=== PATIENT | male | born 1965 | race Caucasian/White ===

== ENCOUNTER 2017-06-08 01:54 | Inpatient (IN) | payer MEDICAID ==
[~2017-06-08] VITALS: Ht 185.4 cm; Wt 78.9 kg
[2017-06-08] MEDS ORDERED: VANCOMYCIN PER PHARMACY MC ONE (03:00)
[2017-06-08] MEDS ORDERED: SODIUM CHLORIDE 0.9% 1,000ML IVBOLUS ONE (03:00)
[2017-06-08] MEDS ORDERED: PIPERACILLIN/TAZO/PMX 3.375GM 50 ML IV ONE (03:00)
[2017-06-08] MEDS ORDERED: PIPERACILLIN/TAZO/PMX 3.375GM 50 ML ONE (03:00)
[2017-06-08] MEDS ORDERED: MORPHINE SULFATE 4 MG/ML, 1ML ONE (03:00)
[2017-06-08] MEDS ORDERED: DIPH,PERTUSS(ACELL),TET VAC/PF 0.5 ML IM-VACC ONE ×2 (03:00→03:01)
[2017-06-08] MEDS ORDERED: MORPHINE SULFATE 4 MG/ML, 1ML IV PRN (03:00)
[2017-06-08 03:26] LABS: MEAN CORPUSCULAR HGB CONC 34.3 g/dL (33.2-36.2); MEAN CORPUSCULAR VOLUME 87.5 fL (81-97); MEAN PLATELET VOLUME 8.4 fL (7.4-10.4); PLATELET COUNT 253 x10^3/uL (130-400); RED BLOOD COUNT 3.85 x10^6/uL (4.38-5.82); RED CELL DISTRIBUTION WIDTH 13.6 % (9.4-14.8)
[2017-06-08] MEDS ORDERED: VANCOMYCIN 1,400 MG in SODIUM CHLORIDE 0.9% 250 ML IV ONE (03:30)
[2017-06-08] MEDS ORDERED: PLEASE ENTER ALLERGIES MC SCH (03:30)
[2017-06-08 03:35] LABS: ALBUMIN 2.5 g/dL (3.4-5.0); ANION GAP 8 mmol/L (5-15); CALCIUM 8.7 mg/dL (8.5-10.1); CHLORIDE 99 mmol/L (98-107); CREATININE 0.89 mg/dL (0.7-1.3)
[2017-06-08 03:42] LABS: MD YES
[2017-06-08 03:49] LABS: BAND#(MANUAL) 1.71 x10^3/uL; BANDS%(MANUAL) 6 % (0-7); LYMPH#(MANUAL) 0.86 x10^3/uL (1-3.4); LYMPHS% (MANUAL) 3 % (22-44); MONOS% (MANUAL) 7 % (2-9); REACTIVE LYMPHS # (MANUAL) 0.86 x10^3/uL (0-0); REACTIVE LYMPHS % (MANUAL) 3 % (0-0); SEG#(MANUAL) 23.09 x10^3/uL (1.8-6.8); SEGS% (MANUAL) 81 % (42-75)
[2017-06-08 03:50] LABS: PMNS WITH VACUOLES 1+; POLYCHROMASIA 1+; TOXIC GRAN 1+
[2017-06-08 03:51] LABS: <PLATELET ESTIMATE> ADEQUATE; LARGE PLATELETS 1+
[2017-06-08] MEDS ORDERED: SODIUM CHLORIDE 0.9% 1,000 ML IV ONE (04:16)
[2017-06-08] MEDS ORDERED: MORPHINE SULFATE 4 MG/ML, 1ML IVPush PRN (04:30)
[2017-06-08] MEDS ORDERED: ONDANSETRON 2MG/ML, 2ML IVPush PRN ×2 (04:30→06:00)
[2017-06-08 05:47] VITALS: BP 135/76
[2017-06-08] MEDS ORDERED: hydrALAzine 20 MG/ML, 1ML IVPush PRN (06:00)
[2017-06-08] MEDS: ENOXAPARIN 40 MG/0.4 ML SQ SCH (06:24)
[2017-06-08] MEDS: NICOTINE 21 MG/24 HR PATCH.TD24 TD SCH (06:24)
[2017-06-08] MEDS: SODIUM CHLORIDE 0.9% 1,000 ML IV SCH ×2 (06:24→16:28)
[2017-06-08] MEDS: CEFTAROLINE 600 MG in SODIUM CHLORIDE 0.9% 100 ML IV SCH ×2 (06:38→17:10)
[2017-06-08 07:18] VITALS: BP 151/76
[2017-06-08] MEDS: POLYETHYLENE GLYCOL 17 GM PACKET PO SCH (08:10)
[2017-06-08 08:22] VITALS: BP 135/70
[2017-06-08] MEDS ORDERED: OMNIPAQUE 350 MG/ML, 100ML BOTTLE ONE (10:05)
[2017-06-08 10:28] LABS: MICROSCOPIC INDICATED
[2017-06-08] MEDS: PRAMIPEXOLE 0.125MG TABLET PO SCH ×3 (10:36→20:35)
[2017-06-08] MEDS: ACETAMINOPHEN 500 MG TABLET PO PRN (10:36)
[2017-06-08 11:23] LABS: CULTURE INDICATED? NO
[2017-06-08 14:00] VITALS: BP 130/76
[2017-06-08 20:03] VITALS: BP 140/71
[2017-06-08] MEDS: OXYcodone IR 5MG TABLET PO PRN (22:57)
[2017-06-08] MEDS ORDERED: KETOROLAC 30 MG/1 ML IM PRN (23:00)
[2017-06-08] MEDS: KETOROLAC 30 MG/1 ML IV PRN (23:02)
[2017-06-09] MEDS: SODIUM CHLORIDE 0.9% 1,000 ML IV SCH ×4 (00:28→23:50)
[2017-06-09 00:41] VITALS: BP 127/64
[2017-06-09 05:47] LABS: MEAN CORPUSCULAR HEMOGLOBIN 29.5 pg (27.5-34.5); MEAN CORPUSCULAR HGB CONC 33.5 g/dL (33.2-36.2); MEAN PLATELET VOLUME 8.7 fL (7.4-10.4); PLATELET COUNT 241 x10^3/uL (130-400); RED BLOOD COUNT 3.72 x10^6/uL (4.38-5.82); RED CELL DISTRIBUTION WIDTH 13.4 % (9.4-14.8)
[2017-06-09 05:57] LABS: CHLORIDE 104 mmol/L (98-107)
[2017-06-09 06:15] LABS: ALANINE AMINOTRANSFERASE 23 U/L (12-78); ALBUMIN 1.8 g/dL (3.4-5.0); ALKALINE PHOSPHATASE 175 U/L (45-117); ANION GAP 8 mmol/L (5-15); BILIRUBIN,TOTAL 0.7 mg/dL (0.2-1.0); CALCIUM 7.8 mg/dL (8.5-10.1); CREATININE 1.03 mg/dL (0.7-1.3); MD YES; TOTAL PROTEIN 5.6 g/dL (6.4-8.2)
[2017-06-09 06:16] LABS: BAND#(MANUAL) 0.39 x10^3/uL; BANDS%(MANUAL) 2 % (0-7); LYMPH#(MANUAL) 0.58 x10^3/uL (1-3.4); LYMPHS% (MANUAL) 3 % (22-44); MONOS#(MANUAL) 2.33 x10^3/uL (0.3-2.7); MONOS% (MANUAL) 12 % (2-9); SEGS% (MANUAL) 83 % (42-75)
[2017-06-09 06:17] LABS: <PLATELET ESTIMATE> ADEQUATE; LARGE PLATELETS 1+; POLYCHROMASIA 1+
[2017-06-09 06:20] LABS: TOXIC GRAN 1+
[2017-06-09] MEDS: CEFTAROLINE 600 MG in SODIUM CHLORIDE 0.9% 100 ML IV SCH ×2 (06:21→17:46)
[2017-06-09] MEDS: ENOXAPARIN 40 MG/0.4 ML SQ SCH (06:21)
[2017-06-09] MEDS: NICOTINE 21 MG/24 HR PATCH.TD24 TD SCH (06:24)
[2017-06-09] MEDS: OXYcodone IR 5MG TABLET PO PRN (06:26)
[2017-06-09 06:45] VITALS: BP 121/67
[2017-06-09] MEDS: POLYETHYLENE GLYCOL 17 GM PACKET PO SCH (09:00)
[2017-06-09] MEDS: PRAMIPEXOLE 0.125MG TABLET PO SCH ×3 (09:00→21:23)
[2017-06-09] MEDS ORDERED: FENTANYL PF 250 MCG/5ML ONE (12:21)
[2017-06-09] MEDS ORDERED: MIDAZOLAM 1 MG/ML, 2ML ONE (12:21)
[2017-06-09] MEDS ORDERED: PROPOFOL 10 MG/ML, 20ML ONE (12:22)
[2017-06-09] MEDS ORDERED: LIDOCAINE-MPF 2% ,5ML ONE (12:22)
[2017-06-09] MEDS ORDERED: FENTANYL PF 100 MCG/2ML ONE (13:28)
[2017-06-09] MEDS ORDERED: DEXAMETHASONE 4 MG/ML, 1ML ONE ×2 (13:29)
[2017-06-09] MEDS ORDERED: KETOROLAC 30 MG/1 ML ONE ×2 (13:30→14:30)
[2017-06-09] MEDS ORDERED: ONDANSETRON 2MG/ML, 2ML IVPush PRN (13:30)
[2017-06-09] MEDS ORDERED: LABETALOL 5MG/ML, 20ML IV PRN (13:30)
[2017-06-09] MEDS ORDERED: ONDANSETRON 2MG/ML, 2ML ONE (13:30)
[2017-06-09] MEDS ORDERED: ACETAMINOPHEN 325 MG TABLET PO PRN (13:30)
[2017-06-09] MEDS ORDERED: hydrALAzine 20 MG/ML, 1ML IV PRN (13:30)
[2017-06-09] MEDS ORDERED: LORazepam 2 MG/ML, 1ML IVPush PRN (13:30)
[2017-06-09] MEDS ORDERED: PROMETHAZINE 12.5 MG SUPP PR PRN (13:30)
[2017-06-09] MEDS ORDERED: MEPERIDINE/PF 25MG/0.5ML IVPush PRN (13:30)
[2017-06-09] MEDS ORDERED: FENTANYL PF 100 MCG/2ML IV PRN (13:30)
[2017-06-09] MEDS ORDERED: morphine SULFATE 10 MG/ML, 1ML IV PRN (13:30)
[2017-06-09] MEDS ORDERED: OXYcodone 5 MG/5 ML ORAL.SOL UDC ONE (14:05)
[2017-06-09] MEDS ORDERED: ACETAMINOPHEN 650 MG/20.3 ML UDC ONE (14:05)
[2017-06-09] MEDS: OXYcodone 5 MG/5 ML ORAL.SOL UDC PO PRN (14:12)
[2017-06-09 15:32] VITALS: BP 143/83
[2017-06-09 18:43] VITALS: BP 126/67
[2017-06-09 23:52] VITALS: BP 120/60
[2017-06-10] MEDS: NICOTINE 21 MG/24 HR PATCH.TD24 TD SCH (06:13)
[2017-06-10] MEDS: CEFTAROLINE 600 MG in SODIUM CHLORIDE 0.9% 100 ML IV SCH (06:13)
[2017-06-10] MEDS: ENOXAPARIN 40 MG/0.4 ML SQ SCH (06:13)
[2017-06-10 06:55] VITALS: BP 144/70
[2017-06-10] MEDS: POLYETHYLENE GLYCOL 17 GM PACKET PO SCH (08:51)
[2017-06-10] MEDS: PRAMIPEXOLE 0.125MG TABLET PO SCH ×3 (08:51→21:24)
[2017-06-10] MEDS: SODIUM CHLORIDE 0.9% 1,000 ML IV SCH ×3 (08:51→23:24)
[2017-06-10 13:06] VITALS: BP 153/77
[2017-06-10] MEDS: CEFAZOLIN PMX 2GM/50ML 50 ML IVPB SCH ×2 (16:26→21:50)
[2017-06-10] MEDS: CLINDAMYCIN PMX 900MG/50ML 50 ML IV SCH ×2 (17:03→23:24)
[2017-06-10 20:15] VITALS: BP 131/63
[2017-06-11] MEDS: OXYcodone 5 MG/5 ML ORAL.SOL UDC PO PRN (00:02)
[2017-06-11 01:20] VITALS: BP 119/59
[2017-06-11 05:47] LABS: HCT (SEDRATE) 30.8 % (39.2-51.8)
[2017-06-11 06:50] VITALS: BP 144/81
[2017-06-11] MEDS: ENOXAPARIN 40 MG/0.4 ML SQ SCH (08:55)
[2017-06-11] MEDS: CLINDAMYCIN PMX 900MG/50ML 50 ML IV SCH ×2 (08:55→16:32)
[2017-06-11] MEDS: NICOTINE 21 MG/24 HR PATCH.TD24 TD SCH (08:56)
[2017-06-11] MEDS: PRAMIPEXOLE 0.125MG TABLET PO SCH ×3 (08:56→21:17)
[2017-06-11] MEDS: POLYETHYLENE GLYCOL 17 GM PACKET PO SCH (08:56)
[2017-06-11] MEDS: CEFAZOLIN PMX 2GM/50ML 50 ML IVPB SCH ×2 (10:35→18:14)
[2017-06-11 12:30] VITALS: BP 148/77
[2017-06-11] MEDS: KETOROLAC 30 MG/1 ML IV PRN ×2 (15:15→21:17)
[2017-06-11 19:19] VITALS: BP 148/75
[2017-06-12] MEDS: CLINDAMYCIN PMX 900MG/50ML 50 ML IV SCH ×2 (00:25→10:06)
[2017-06-12] MEDS: SODIUM CHLORIDE 0.9% 1,000 ML IV SCH ×3 (00:38→19:48)
[2017-06-12 01:22] VITALS: BP 136/68
[2017-06-12] MEDS: CEFAZOLIN PMX 2GM/50ML 50 ML IVPB SCH ×3 (03:08→19:47)
[2017-06-12] MEDS: KETOROLAC 30 MG/1 ML IV PRN ×3 (05:50→22:25)
[2017-06-12 07:57] VITALS: BP 132/68
[2017-06-12] MEDS: morphine SULFATE 10 MG/ML, 1ML IVPush PRN ×3 (09:34→10:06)
[2017-06-12] MEDS: ENOXAPARIN 40 MG/0.4 ML SQ SCH (10:06)
[2017-06-12] MEDS: NICOTINE 21 MG/24 HR PATCH.TD24 TD SCH (10:07)
[2017-06-12] MEDS: POLYETHYLENE GLYCOL 17 GM PACKET PO SCH (10:07)
[2017-06-12] MEDS: PRAMIPEXOLE 0.125MG TABLET PO SCH ×3 (10:07→19:47)
[2017-06-12 12:39] VITALS: BP 154/84
[2017-06-12 19:08] VITALS: BP 144/78
[2017-06-12] MEDS: OXYcodone IR 5MG TABLET PO PRN (19:47)
[2017-06-13 02:00] VITALS: BP 160/81
[2017-06-13] MEDS: SODIUM CHLORIDE 0.9% 1,000 ML IV SCH ×3 (03:27→19:53)
[2017-06-13] MEDS: CEFAZOLIN PMX 2GM/50ML 50 ML IVPB SCH ×3 (03:27→19:52)
[2017-06-13] MEDS: OXYcodone IR 5MG TABLET PO PRN ×3 (04:31→18:39)
[2017-06-13 06:06] LABS: ANION GAP 4 mmol/L (5-15); CALCIUM 8.6 mg/dL (8.5-10.1); CHLORIDE 106 mmol/L (98-107); CREATININE 0.87 mg/dL (0.7-1.3)
[2017-06-13 06:32] LABS: MEAN CORPUSCULAR HEMOGLOBIN 29.1 pg (27.5-34.5); MEAN CORPUSCULAR HGB CONC 33.3 g/dL (33.2-36.2); MEAN CORPUSCULAR VOLUME 87.6 fL (81-97); RED BLOOD COUNT 4.02 x10^6/uL (4.38-5.82)
[2017-06-13 06:59] LABS: MD YES; MEAN PLATELET VOLUME 8.2 fL (7.4-10.4); PLATELET COUNT 458 x10^3/uL (130-400)
[2017-06-13 07:01] LABS: <PLATELET ESTIMATE> INCREASED; <PLT MORPHOLOGY> NORMAL PLT MORPH; BAND#(MANUAL) 0.28 x10^3/uL; BANDS%(MANUAL) 2 % (0-7); EOS#(MANUAL) 0.28 x10^3/uL (0.0-0.4); EOS% (MANUAL) 2 % (1-7); LYMPHS% (MANUAL) 15 % (22-44); METAMYELOCYTES# (MANUAL) 0.14 x10^3/uL (0-0); METAMYELOCYTES% (MANUAL) 1 % (0-1); MONOS#(MANUAL) 0.28 x10^3/uL (0.3-2.7); MONOS% (MANUAL) 2 % (2-9); MYELOCYTES# (MANUAL) 0.14 x10^3/uL (0-0); MYELOCYTES% (MANUAL) 1 % (0-0); POLYCHROMASIA 1+; REACTIVE LYMPHS # (MANUAL) 0.14 x10^3/uL (0-0); REACTIVE LYMPHS % (MANUAL) 1 % (0-0); SEG#(MANUAL) 10.64 x10^3/uL (1.8-6.8); SEGS% (MANUAL) 76 % (42-75)
[2017-06-13 07:02] LABS: TOXIC GRAN 1+
[2017-06-13 07:10] VITALS: BP 143/64
[2017-06-13] MEDS: morphine SULFATE 10 MG/ML, 1ML IVPush PRN (07:27)
[2017-06-13] MEDS: POLYETHYLENE GLYCOL 17 GM PACKET PO SCH (09:11)
[2017-06-13] MEDS: ENOXAPARIN 40 MG/0.4 ML SQ SCH (09:11)
[2017-06-13] MEDS: NICOTINE 21 MG/24 HR PATCH.TD24 TD SCH (09:11)
[2017-06-13] MEDS: PRAMIPEXOLE 0.125MG TABLET PO SCH ×3 (09:12→19:52)
[2017-06-13] MEDS: KETOROLAC 30 MG/1 ML IV PRN ×2 (12:39→19:52)
[2017-06-13 14:40] VITALS: BP 157/76
[2017-06-13 20:03] VITALS: BP 153/85
[2017-06-14 03:30] VITALS: BP 160/80
[2017-06-14] MEDS: OXYcodone IR 5MG TABLET PO PRN ×3 (03:32→18:38)
[2017-06-14] MEDS: SODIUM CHLORIDE 0.9% 1,000 ML IV SCH ×3 (03:32→19:45)
[2017-06-14] MEDS: CEFAZOLIN PMX 2GM/50ML 50 ML IVPB SCH ×3 (03:32→19:45)
[2017-06-14 05:40] LABS: MEAN CORPUSCULAR HEMOGLOBIN 29.7 pg (27.5-34.5); MEAN CORPUSCULAR HGB CONC 33.7 g/dL (33.2-36.2); MEAN PLATELET VOLUME 7.8 fL (7.4-10.4); PLATELET COUNT 496 x10^3/uL (130-400); RED BLOOD COUNT 3.96 x10^6/uL (4.38-5.82); RED CELL DISTRIBUTION WIDTH 13.7 % (9.4-14.8)
[2017-06-14 05:50] LABS: CHLORIDE 107 mmol/L (98-107)
[2017-06-14 05:57] LABS: ANION GAP 4 mmol/L (5-15); CALCIUM 8.4 mg/dL (8.5-10.1); CREATININE 0.78 mg/dL (0.7-1.3)
[2017-06-14 06:17] LABS: MD YES
[2017-06-14 06:20] LABS: EOS#(MANUAL) 0.56 x10^3/uL (0.0-0.4); EOS% (MANUAL) 4 % (1-7); LYMPH#(MANUAL) 0.99 x10^3/uL (1-3.4); LYMPHS% (MANUAL) 7 % (22-44); METAMYELOCYTES# (MANUAL) 0.85 x10^3/uL (0-0); METAMYELOCYTES% (MANUAL) 6 % (0-1); MONOS#(MANUAL) 0.56 x10^3/uL (0.3-2.7); MONOS% (MANUAL) 4 % (2-9); MYELOCYTES# (MANUAL) 0.71 x10^3/uL (0-0); MYELOCYTES% (MANUAL) 5 % (0-0); SEG#(MANUAL) 10.43 x10^3/uL (1.8-6.8); SEGS% (MANUAL) 74 % (42-75)
[2017-06-14 06:22] LABS: <PLATELET ESTIMATE> INCREASED; <PLT MORPHOLOGY> NORMAL PLT MORPH; POLYCHROMASIA 1+; TOXIC GRAN 1+
[2017-06-14 07:07] VITALS: BP 148/95
[2017-06-14] MEDS: ACETAMINOPHEN 500 MG TABLET PO PRN (08:34)
[2017-06-14] MEDS: NICOTINE 21 MG/24 HR PATCH.TD24 TD SCH (08:34)
[2017-06-14] MEDS: PRAMIPEXOLE 0.125MG TABLET PO SCH ×3 (08:35→19:45)
[2017-06-14] MEDS: POLYETHYLENE GLYCOL 17 GM PACKET PO SCH (08:35)
[2017-06-14] MEDS: morphine SULFATE 10 MG/ML, 1ML IVPush PRN ×2 (10:52→11:45)
[2017-06-14] MEDS: ENOXAPARIN 40 MG/0.4 ML SQ SCH (13:48)
[2017-06-14 13:52] VITALS: BP 144/79
[2017-06-14 19:17] VITALS: BP 165/90
[2017-06-15 00:59] VITALS: BP 165/84
[2017-06-15] MEDS: OXYcodone IR 5MG TABLET PO PRN ×4 (01:07→20:53)
[2017-06-15] MEDS: SODIUM CHLORIDE 0.9% 1,000 ML IV SCH ×3 (03:33→19:56)
[2017-06-15] MEDS: CEFAZOLIN PMX 2GM/50ML 50 ML IVPB SCH ×3 (03:33→19:56)
[2017-06-15 05:04] LABS: BASOPHILS # (AUTO) 0.04 x10^3/uL (0-0.1); BASOPHILS % (AUTO) 0 % (0-1); EOSINOPHILS # (AUTO) 0.22 x10^3/uL (0-0.4); EOSINOPHILS % (AUTO) 2 % (1-7); LYMPHOCYTES # (AUTO) 1.18 x10^3/uL (1-3.4); LYMPHOCYTES % (AUTO) 9 % (22-44); MD NO; MEAN CORPUSCULAR HEMOGLOBIN 29.4 pg (27.5-34.5); MEAN CORPUSCULAR HGB CONC 33.8 g/dL (33.2-36.2); MEAN CORPUSCULAR VOLUME 86.9 fL (81-97); MEAN PLATELET VOLUME 7.5 fL (7.4-10.4); MONOCYTES # (AUTO) 0.33 x10^3/uL (0.2-0.8); MONOCYTES % (AUTO) 3 % (2-9); NEUTROPHILS % (AUTO) 86 % (42-75); PLATELET COUNT 497 x10^3/uL (130-400); RED BLOOD COUNT 4.01 x10^6/uL (4.38-5.82); RED CELL DISTRIBUTION WIDTH 13.8 % (9.4-14.8)
[2017-06-15 05:13] LABS: ANION GAP 6 mmol/L (5-15); CALCIUM 8.8 mg/dL (8.5-10.1); CHLORIDE 103 mmol/L (98-107); CREATININE 0.92 mg/dL (0.7-1.3)
[2017-06-15 06:43] VITALS: BP 127/63
[2017-06-15] MEDS: POLYETHYLENE GLYCOL 17 GM PACKET PO SCH (08:26)
[2017-06-15] MEDS: NICOTINE 21 MG/24 HR PATCH.TD24 TD SCH (08:27)
[2017-06-15] MEDS: PRAMIPEXOLE 0.125MG TABLET PO SCH ×3 (08:28→19:56)
[2017-06-15] MEDS: ENOXAPARIN 40 MG/0.4 ML SQ SCH (08:28)
[2017-06-15 12:30] VITALS: BP 124/79
[2017-06-15 19:20] VITALS: BP 145/79
[2017-06-16 02:59] VITALS: BP 120/64
[2017-06-16] MEDS: SODIUM CHLORIDE 0.9% 1,000 ML IV SCH ×3 (03:44→22:30)
[2017-06-16] MEDS: CEFAZOLIN PMX 2GM/50ML 50 ML IVPB SCH ×3 (03:44→19:46)
[2017-06-16 05:41] LABS: BASOPHILS # (AUTO) 0.04 x10^3/uL (0-0.1); BASOPHILS % (AUTO) 0 % (0-1); EOSINOPHILS # (AUTO) 0.15 x10^3/uL (0-0.4); EOSINOPHILS % (AUTO) 2 % (1-7); LYMPHOCYTES # (AUTO) 1.19 x10^3/uL (1-3.4); LYMPHOCYTES % (AUTO) 12 % (22-44); MD NO; MEAN CORPUSCULAR VOLUME 88.2 fL (81-97); MEAN PLATELET VOLUME 7.9 fL (7.4-10.4); MONOCYTES % (AUTO) 4 % (2-9); NEUTROPHILS # (AUTO) 8.38 x10^3/uL (1.8-6.8); NEUTROPHILS % (AUTO) 82 % (42-75); PLATELET COUNT 514 x10^3/uL (130-400); RED BLOOD COUNT 3.99 x10^6/uL (4.38-5.82); RED CELL DISTRIBUTION WIDTH 14.2 % (9.4-14.8)
[2017-06-16 05:48] LABS: ANION GAP 4 mmol/L (5-15); CHLORIDE 105 mmol/L (98-107); CREATININE 0.96 mg/dL (0.7-1.3)
[2017-06-16 07:09] VITALS: BP 117/67
[2017-06-16] MEDS: NICOTINE 21 MG/24 HR PATCH.TD24 TD SCH (08:00)
[2017-06-16] MEDS: PRAMIPEXOLE 0.125MG TABLET PO SCH ×3 (08:57→19:46)
[2017-06-16] MEDS: ENOXAPARIN 40 MG/0.4 ML SQ SCH (08:57)
[2017-06-16] MEDS: OXYcodone IR 5MG TABLET PO PRN ×3 (08:57→22:30)
[2017-06-16] MEDS: POLYETHYLENE GLYCOL 17 GM PACKET PO SCH (08:59)
[2017-06-16 13:00] VITALS: BP 129/75
[2017-06-16 19:52] VITALS: BP 151/67
[2017-06-17 03:32] VITALS: BP 132/74
[2017-06-17] MEDS: OXYcodone IR 5MG TABLET PO PRN ×4 (03:44→23:03)
[2017-06-17] MEDS: CEFAZOLIN PMX 2GM/50ML 50 ML IVPB SCH ×3 (03:46→20:03)
[2017-06-17 05:38] LABS: CHLORIDE 103 mmol/L (98-107)
[2017-06-17 05:49] LABS: ALANINE AMINOTRANSFERASE 17 U/L (12-78); ALBUMIN 2.3 g/dL (3.4-5.0); ALKALINE PHOSPHATASE 88 U/L (45-117); ANION GAP 8 mmol/L (5-15); BILIRUBIN,TOTAL 0.3 mg/dL (0.2-1.0); C-REACTIVE PROTEIN, QUANT 0.72 mg/dL (0.02-0.49); CALCIUM 8.7 mg/dL (8.5-10.1); CREATININE 0.91 mg/dL (0.7-1.3); TOTAL PROTEIN 6.8 g/dL (6.4-8.2)
[2017-06-17 05:57] LABS: BASOPHILS # (AUTO) 0.04 x10^3/uL (0-0.1); BASOPHILS % (AUTO) 1 % (0-1); EOSINOPHILS # (AUTO) 0.12 x10^3/uL (0-0.4); EOSINOPHILS % (AUTO) 2 % (1-7); LYMPHOCYTES # (AUTO) 1.22 x10^3/uL (1-3.4); LYMPHOCYTES % (AUTO) 17 % (22-44); MD NO; MEAN CORPUSCULAR HEMOGLOBIN 29.2 pg (27.5-34.5); MEAN CORPUSCULAR HGB CONC 33.2 g/dL (33.2-36.2); MEAN CORPUSCULAR VOLUME 87.8 fL (81-97); MEAN PLATELET VOLUME 7.9 fL (7.4-10.4); MONOCYTES % (AUTO) 6 % (2-9); NEUTROPHILS # (AUTO) 5.45 x10^3/uL (1.8-6.8); NEUTROPHILS % (AUTO) 75 % (42-75); PLATELET COUNT 503 x10^3/uL (130-400); RED BLOOD COUNT 3.95 x10^6/uL (4.38-5.82); RED CELL DISTRIBUTION WIDTH 14.4 % (9.4-14.8)
[2017-06-17 06:25] LABS: HCT (SEDRATE) 35.2 % (39.2-51.8)
[2017-06-17 07:05] VITALS: BP 134/83
[2017-06-17] MEDS: NICOTINE 21 MG/24 HR PATCH.TD24 TD SCH (08:00)
[2017-06-17] MEDS: PRAMIPEXOLE 0.125MG TABLET PO SCH ×3 (09:03→20:03)
[2017-06-17] MEDS: POLYETHYLENE GLYCOL 17 GM PACKET PO SCH (09:03)
[2017-06-17] MEDS: SODIUM CHLORIDE 0.9% 1,000 ML IV SCH ×2 (09:03→17:03)
[2017-06-17] MEDS: morphine SULFATE 10 MG/ML, 1ML IVPush PRN ×2 (09:35→10:43)
[2017-06-17] MEDS: ENOXAPARIN 40 MG/0.4 ML SQ SCH (10:44)
[2017-06-17 14:19] VITALS: BP 118/63
[2017-06-17 19:46] VITALS: BP 132/63
[2017-06-18] MEDS: SODIUM CHLORIDE 0.9% 1,000 ML IV SCH ×3 (00:26→11:46)
[2017-06-18 01:08] VITALS: BP 142/59
[2017-06-18] MEDS: CEFAZOLIN PMX 2GM/50ML 50 ML IVPB SCH ×3 (03:30→20:35)
[2017-06-18] MEDS: OXYcodone IR 5MG TABLET PO PRN ×3 (06:02→17:17)
[2017-06-18] MEDS: NICOTINE 21 MG/24 HR PATCH.TD24 TD SCH (08:00)
[2017-06-18] MEDS: POLYETHYLENE GLYCOL 17 GM PACKET PO SCH (08:09)
[2017-06-18] MEDS: PRAMIPEXOLE 0.125MG TABLET PO SCH ×3 (08:09→20:35)
[2017-06-18] MEDS: ENOXAPARIN 40 MG/0.4 ML SQ SCH (08:12)
[2017-06-18 08:19] VITALS: BP 128/67
[2017-06-18 14:15] VITALS: BP 132/62
[2017-06-18 19:15] VITALS: BP 138/66
[2017-06-18] MEDS: ACETAMINOPHEN 500 MG TABLET PO PRN (20:35)
[2017-06-19] MEDS: OXYcodone IR 5MG TABLET PO PRN ×4 (00:07→21:10)
[2017-06-19 01:20] VITALS: BP 127/69
[2017-06-19] MEDS: CEFAZOLIN PMX 2GM/50ML 50 ML IVPB SCH ×3 (05:00→19:59)
[2017-06-19 06:47] VITALS: BP 129/65
[2017-06-19] MEDS: ENOXAPARIN 40 MG/0.4 ML SQ SCH ×2 (07:34→08:00)
[2017-06-19] MEDS: NICOTINE 21 MG/24 HR PATCH.TD24 TD SCH (08:00)
[2017-06-19] MEDS: PRAMIPEXOLE 0.125MG TABLET PO SCH ×3 (08:41→19:58)
[2017-06-19] MEDS: POLYETHYLENE GLYCOL 17 GM PACKET PO SCH (08:48)
[2017-06-19] MEDS: morphine SULFATE 10 MG/ML, 1ML IVPush PRN (11:11)
[2017-06-19 12:21] VITALS: BP 123/56
[2017-06-19 20:01] VITALS: BP 144/71
[2017-06-20] MEDS: ACETAMINOPHEN 500 MG TABLET PO PRN ×2 (00:22→20:32)
[2017-06-20] MEDS: CEFAZOLIN PMX 2GM/50ML 50 ML IVPB SCH ×3 (03:43→20:32)
[2017-06-20] MEDS: OXYcodone IR 5MG TABLET PO PRN ×3 (03:43→18:38)
[2017-06-20 04:05] VITALS: BP 119/61
[2017-06-20 07:18] VITALS: BP 112/60
[2017-06-20] MEDS: ENOXAPARIN 40 MG/0.4 ML SQ SCH (08:00)
[2017-06-20] MEDS: NICOTINE 21 MG/24 HR PATCH.TD24 TD SCH (08:00)
[2017-06-20] MEDS: POLYETHYLENE GLYCOL 17 GM PACKET PO SCH (08:59)
[2017-06-20] MEDS: PRAMIPEXOLE 0.125MG TABLET PO SCH ×3 (09:00→20:32)
[2017-06-20 13:46] VITALS: BP 130/60
[2017-06-20 18:35] VITALS: BP 151/71
[2017-06-21] MEDS: CEFAZOLIN PMX 2GM/50ML 50 ML IVPB SCH ×2 (03:46→12:17)
[2017-06-21 04:10] VITALS: BP 120/53
[2017-06-21 05:37] LABS: BASOPHILS # (AUTO) 0.08 x10^3/uL (0-0.1); BASOPHILS % (AUTO) 1 % (0-1); EOSINOPHILS # (AUTO) 0.12 x10^3/uL (0-0.4); EOSINOPHILS % (AUTO) 2 % (1-7); LYMPHOCYTES # (AUTO) 1.28 x10^3/uL (1-3.4); LYMPHOCYTES % (AUTO) 20 % (22-44); MD NO; MEAN CORPUSCULAR HEMOGLOBIN 29.4 pg (27.5-34.5); MEAN CORPUSCULAR HGB CONC 33.4 g/dL (33.2-36.2); MEAN CORPUSCULAR VOLUME 87.8 fL (81-97); MEAN PLATELET VOLUME 7.8 fL (7.4-10.4); MONOCYTES # (AUTO) 0.46 x10^3/uL (0.2-0.8); MONOCYTES % (AUTO) 7 % (2-9); NEUTROPHILS # (AUTO) 4.51 x10^3/uL (1.8-6.8); NEUTROPHILS % (AUTO) 70 % (42-75); PLATELET COUNT 481 x10^3/uL (130-400); RED BLOOD COUNT 4.05 x10^6/uL (4.38-5.82)
[2017-06-21 05:48] LABS: ANION GAP 7 mmol/L (5-15); CALCIUM 8.9 mg/dL (8.5-10.1); CHLORIDE 102 mmol/L (98-107)
[2017-06-21 05:49] LABS: CREATININE 0.94 mg/dL (0.7-1.3)
[2017-06-21 06:45] VITALS: BP 135/65
[2017-06-21] MEDS: ENOXAPARIN 40 MG/0.4 ML SQ SCH (08:00)
[2017-06-21] MEDS: NICOTINE 21 MG/24 HR PATCH.TD24 TD SCH (08:00)
[2017-06-21] MEDS: PRAMIPEXOLE 0.125MG TABLET PO SCH ×3 (08:48→20:22)
[2017-06-21] MEDS: OXYcodone IR 5MG TABLET PO PRN ×2 (08:48→16:55)
[2017-06-21] MEDS: POLYETHYLENE GLYCOL 17 GM PACKET PO SCH (08:48)
[2017-06-21] MEDS: morphine SULFATE 10 MG/ML, 1ML IVPush PRN (10:46)
[2017-06-21 15:22] VITALS: BP 118/61
[2017-06-21 20:12] VITALS: BP 129/61
[2017-06-21] MEDS: ACETAMINOPHEN 500 MG TABLET PO PRN (20:22)
[2017-06-21] MEDS: CEFAZOLIN 2,000 MG in DEXTROSE 5% 50 ML IVPB SCH (20:22)
[2017-06-22 01:45] VITALS: BP 124/63
[2017-06-22] MEDS: ACETAMINOPHEN 500 MG TABLET PO PRN ×3 (02:14→16:19)
[2017-06-22] MEDS: CEFAZOLIN 2,000 MG in DEXTROSE 5% 50 ML IVPB SCH ×3 (03:53→20:35)
[2017-06-22] MEDS: NICOTINE 21 MG/24 HR PATCH.TD24 TD SCH (07:23)
[2017-06-22] MEDS: ENOXAPARIN 40 MG/0.4 ML SQ SCH (07:23)
[2017-06-22 08:10] VITALS: BP 127/60
[2017-06-22] MEDS: POLYETHYLENE GLYCOL 17 GM PACKET PO SCH (09:00)
[2017-06-22] MEDS: PRAMIPEXOLE 0.125MG TABLET PO SCH ×3 (09:48→20:35)
[2017-06-22 14:45] VITALS: BP 136/62
[2017-06-22 20:00] VITALS: BP 126/47
[2017-06-22] MEDS: OXYcodone IR 5MG TABLET PO PRN (20:35)
[2017-06-23] MEDS: ACETAMINOPHEN 500 MG TABLET PO PRN ×4 (01:29→21:20)
[2017-06-23 02:00] VITALS: BP 128/55
[2017-06-23] MEDS: CEFAZOLIN 2,000 MG in DEXTROSE 5% 50 ML IVPB SCH ×3 (04:02→20:28)
[2017-06-23 08:00] VITALS: BP 111/61
[2017-06-23] MEDS: NICOTINE 21 MG/24 HR PATCH.TD24 TD SCH (08:00)
[2017-06-23] MEDS: ENOXAPARIN 40 MG/0.4 ML SQ SCH (08:00)
[2017-06-23] MEDS: POLYETHYLENE GLYCOL 17 GM PACKET PO SCH (09:00)
[2017-06-23] MEDS: PRAMIPEXOLE 0.125MG TABLET PO SCH ×3 (09:12→20:27)
[2017-06-23 14:20] VITALS: BP 128/66
[2017-06-23 19:00] VITALS: BP 137/67
[2017-06-24 02:17] VITALS: BP 136/61
[2017-06-24] MEDS: CEFAZOLIN 2,000 MG in DEXTROSE 5% 50 ML IVPB SCH ×3 (04:47→22:03)
[2017-06-24 05:14] LABS: HCT (SEDRATE) 34.4 % (39.2-51.8)
[2017-06-24 05:25] LABS: CHLORIDE 109 mmol/L (98-107)
[2017-06-24 05:29] LABS: ALANINE AMINOTRANSFERASE 15 U/L (12-78); ALBUMIN 2.9 g/dL (3.4-5.0); ALKALINE PHOSPHATASE 80 U/L (45-117); ANION GAP 6 mmol/L (5-15); BILIRUBIN,TOTAL 0.2 mg/dL (0.2-1.0); C-REACTIVE PROTEIN, QUANT 0.08 mg/dL (0.02-0.49); CALCIUM 8.4 mg/dL (8.5-10.1); CREATININE 0.81 mg/dL (0.7-1.3); TOTAL PROTEIN 7.5 g/dL (6.4-8.2)
[2017-06-24 05:30] LABS: BASOPHILS # (AUTO) 0.05 x10^3/uL (0-0.1); BASOPHILS % (AUTO) 1 % (0-1); EOSINOPHILS % (AUTO) 1 % (1-7); LYMPHOCYTES # (AUTO) 1.18 x10^3/uL (1-3.4); LYMPHOCYTES % (AUTO) 15 % (22-44); MD NO; MEAN CORPUSCULAR HEMOGLOBIN 29.8 pg (27.5-34.5); MEAN CORPUSCULAR VOLUME 87.6 fL (81-97); MEAN PLATELET VOLUME 8.3 fL (7.4-10.4); MONOCYTES # (AUTO) 0.46 x10^3/uL (0.2-0.8); MONOCYTES % (AUTO) 6 % (2-9); NEUTROPHILS # (AUTO) 6.04 x10^3/uL (1.8-6.8); NEUTROPHILS % (AUTO) 77 % (42-75); PLATELET COUNT 418 x10^3/uL (130-400); RED BLOOD COUNT 3.94 x10^6/uL (4.38-5.82); RED CELL DISTRIBUTION WIDTH 13.8 % (9.4-14.8)
[2017-06-24] MEDS: NICOTINE 21 MG/24 HR PATCH.TD24 TD SCH (08:00)
[2017-06-24] MEDS: ENOXAPARIN 40 MG/0.4 ML SQ SCH (08:00)
[2017-06-24 08:34] VITALS: BP 142/79
[2017-06-24] MEDS: POLYETHYLENE GLYCOL 17 GM PACKET PO SCH (09:00)
[2017-06-24] MEDS: PRAMIPEXOLE 0.125MG TABLET PO SCH ×3 (10:19→20:26)
[2017-06-24 14:25] VITALS: BP_SYST 112; BP_SYST 137; BP_DIAS 68; BP_DIAS 72
[2017-06-24 20:11] VITALS: BP 150/65
[2017-06-24] MEDS: ACETAMINOPHEN 500 MG TABLET PO PRN (20:26)
[2017-06-25 02:58] VITALS: BP 135/64
[2017-06-25] MEDS: CEFAZOLIN 2,000 MG in DEXTROSE 5% 50 ML IVPB SCH ×2 (05:11→13:00)
[2017-06-25] MEDS: ENOXAPARIN 40 MG/0.4 ML SQ SCH (07:43)
[2017-06-25] MEDS: NICOTINE 21 MG/24 HR PATCH.TD24 TD SCH (07:45)
[2017-06-25 08:05] VITALS: BP_SYST 146; BP_SYST 161; BP_DIAS 67; BP_DIAS 77
[2017-06-25] MEDS: POLYETHYLENE GLYCOL 17 GM PACKET PO SCH (09:00)
[2017-06-25] MEDS: PRAMIPEXOLE 0.125MG TABLET PO SCH ×3 (10:54→20:19)
[2017-06-25 11:56] VITALS: BP 131/73
[2017-06-25 14:00] VITALS: BP 131/73
[2017-06-25 19:18] VITALS: BP 142/71
[2017-06-25] MEDS ORDERED: FLU VACC QS2017-18 (36MOS+) UP/PF 0.5 ML IM-VACC ONE (22:00)
[2017-06-26] MEDS ORDERED: DIPHENHYDRAMINE 25 MG CAPSULE PO ONE (01:30)
[2017-06-26 01:49] VITALS: BP 132/59
[2017-06-26 05:33] LABS: BASOPHILS # (AUTO) 0.06 x10^3/uL (0-0.1); BASOPHILS % (AUTO) 1 % (0-1); EOSINOPHILS # (AUTO) 0.16 x10^3/uL (0-0.4); EOSINOPHILS % (AUTO) 2 % (1-7); LYMPHOCYTES # (AUTO) 1.31 x10^3/uL (1-3.4); LYMPHOCYTES % (AUTO) 19 % (22-44); MD NO; MEAN CORPUSCULAR HEMOGLOBIN 29.4 pg (27.5-34.5); MEAN CORPUSCULAR HGB CONC 33.4 g/dL (33.2-36.2); MEAN PLATELET VOLUME 8.5 fL (7.4-10.4); MONOCYTES # (AUTO) 0.49 x10^3/uL (0.2-0.8); MONOCYTES % (AUTO) 7 % (2-9); NEUTROPHILS % (AUTO) 71 % (42-75); PLATELET COUNT 340 x10^3/uL (130-400); RED BLOOD COUNT 4.07 x10^6/uL (4.38-5.82); RED CELL DISTRIBUTION WIDTH 14.1 % (9.4-14.8)
[2017-06-26 05:39] LABS: ANION GAP 8 mmol/L (5-15); CALCIUM 8.8 mg/dL (8.5-10.1); CHLORIDE 106 mmol/L (98-107); CREATININE 0.92 mg/dL (0.7-1.3)
[2017-06-26 07:25] VITALS: BP 130/73
[2017-06-26] MEDS: PRAMIPEXOLE 0.125MG TABLET PO SCH ×3 (08:24→21:22)
[2017-06-26] MEDS: NICOTINE 21 MG/24 HR PATCH.TD24 TD SCH (08:25)
[2017-06-26] MEDS: ENOXAPARIN 40 MG/0.4 ML SQ SCH (08:25)
[2017-06-26] MEDS: POLYETHYLENE GLYCOL 17 GM PACKET PO SCH (08:26)
[2017-06-26 13:20] VITALS: BP 130/82
[2017-06-26 19:41] VITALS: BP 142/80
[2017-06-27 02:37] VITALS: BP 134/73
[2017-06-27 07:21] VITALS: BP 130/74
[2017-06-27] MEDS: PRAMIPEXOLE 0.125MG TABLET PO SCH ×3 (07:58→20:11)
[2017-06-27] MEDS: NICOTINE 21 MG/24 HR PATCH.TD24 TD SCH (07:58)
[2017-06-27] MEDS: ENOXAPARIN 40 MG/0.4 ML SQ SCH (07:59)
[2017-06-27] MEDS: POLYETHYLENE GLYCOL 17 GM PACKET PO SCH (07:59)
[2017-06-27 14:23] VITALS: BP 126/72
[2017-06-27 20:37] VITALS: BP 139/80
[2017-06-27] MEDS: ZOLPIDEM 5MG TABLET PO PRN (22:38)
[2017-06-28 05:04] VITALS: BP 126/60
[2017-06-28 07:27] VITALS: BP 120/71
[2017-06-28] MEDS: NICOTINE 21 MG/24 HR PATCH.TD24 TD SCH (07:35)
[2017-06-28] MEDS: PRAMIPEXOLE 0.125MG TABLET PO SCH ×3 (07:35→21:17)
[2017-06-28] MEDS: POLYETHYLENE GLYCOL 17 GM PACKET PO SCH (07:35)
[2017-06-28] MEDS: ENOXAPARIN 40 MG/0.4 ML SQ SCH (07:36)
[2017-06-28 13:30] VITALS: BP 132/61
[2017-06-28 19:50] VITALS: BP 129/81
[2017-06-28] MEDS: ZOLPIDEM 5MG TABLET PO PRN (21:18)
[2017-06-29 05:23] VITALS: BP 128/78
[2017-06-29 07:27] VITALS: BP 135/73
[2017-06-29] MEDS: NICOTINE 21 MG/24 HR PATCH.TD24 TD SCH (08:00)
[2017-06-29] MEDS: ENOXAPARIN 40 MG/0.4 ML SQ SCH (08:00)
[2017-06-29] MEDS: POLYETHYLENE GLYCOL 17 GM PACKET PO SCH (08:02)
[2017-06-29] MEDS: PRAMIPEXOLE 0.125MG TABLET PO SCH ×3 (08:14→20:32)
[2017-06-29 13:31] VITALS: BP 129/74
[2017-06-29] MEDS ORDERED: ONDANSETRON 2MG/ML, 2ML IVPush PRN (16:14)
[2017-06-29] MEDS ORDERED: ONDANSETRON ODT 4 MG PO PRN (16:30)
[2017-06-29 18:52] VITALS: BP 148/76
[2017-06-29] MEDS: ZOLPIDEM 5MG TABLET PO PRN (20:32)
[2017-06-30 05:48] VITALS: BP 114/71
[2017-06-30 07:00] VITALS: BP 117/74
[2017-06-30] MEDS: POLYETHYLENE GLYCOL 17 GM PACKET PO SCH (07:30)
[2017-06-30] MEDS: ENOXAPARIN 40 MG/0.4 ML SQ SCH (07:30)
[2017-06-30] MEDS: NICOTINE 21 MG/24 HR PATCH.TD24 TD SCH (07:30)
[2017-06-30] MEDS: PRAMIPEXOLE 0.125MG TABLET PO SCH ×3 (07:31→20:54)
[2017-06-30 13:00] VITALS: BP 147/74
[2017-06-30 19:12] VITALS: BP 138/77
[2017-06-30] MEDS: ZOLPIDEM 5MG TABLET PO PRN (20:54)
[2017-07-01 04:24] VITALS: BP 129/66
[2017-07-01 06:55] VITALS: BP 110/82
[2017-07-01] MEDS: POLYETHYLENE GLYCOL 17 GM PACKET PO SCH (07:20)
[2017-07-01] MEDS: ENOXAPARIN 40 MG/0.4 ML SQ SCH (07:20)
[2017-07-01] MEDS: NICOTINE 21 MG/24 HR PATCH.TD24 TD SCH (07:20)
[2017-07-01] MEDS: PRAMIPEXOLE 0.125MG TABLET PO SCH (07:21)
[2017-07-01] MEDS ORDERED: ACET325T26 PO (11:16)
[2017-07-01] MEDS ORDERED: HYDR-3343 PO (11:16)
[2017-07-01] MEDS ORDERED: PRAM0.125 PO (11:16)
[2017-07-01] MEDS ORDERED: NICO-487 TD (11:16)
== END 2017-07-01 12:37 | DRG 853 ==
LOC: ED 02:41 → EDIP 04:19 → 3NE 05:30 → DCLOUNGE 07-01 12:22
PROVIDERS: ADMIT Hospitalist; ATTEND Family Medicine
PROC: 0J9H0ZZ Drainage of Left Lower Arm Subcutaneous Tissue and Fascia, Open Approach (ICD-10-PCS; principal; 2017-06-09 12:30)
DX: A41.9 Sepsis, unspecified organism (principal); E43 Unspecified severe protein-calorie malnutrition; M72.6 Necrotizing fasciitis; E87.1 Hypo-osmolality and hyponatremia; F15.20 Other stimulant dependence, uncomplicated; L02.414 Cutaneous abscess of left upper limb; L03.114 Cellulitis of left upper limb; D64.9 Anemia, unspecified; F11.10 Opioid abuse, uncomplicated; F17.210 Nicotine dependence, cigarettes, uncomplicated; G25.81 Restless legs syndrome; I10 Essential (primary) hypertension; Z59.0 Homelessness; Z68.22 Body mass index [BMI] 22.0-22.9, adult
CPT/HCPCS: 36415; 80048; 80053; 81001; 82040; 83605; 83735; 84100; 84145; 84443; 85025; 85651; 86140; 87040; 87070; 87075; 87147; 87205; 90471; 90686; 90715; 96365; 96375; J0690; J0712; J1100; J1650; J1885; J2250; J2405; J2543; J2704; J3010; J3490; Q9967; J2270; J7030

== ENCOUNTER 2017-11-21 23:34 | Inpatient (IN) | payer MEDICAID ==
[~2017-11-21] VITALS: Ht 185.4 cm; Wt 73.0 kg
[~2017-11-21 23:34] MED LIST: ACET325T26 PO; HYDR-3343 PO; NICO-487 TD; PRAM0.125 PO
[2017-11-22] MEDS ORDERED: SODIUM CHLORIDE 0.9% 1,000ML IVBOLUS ONE
[2017-11-22] MEDS ORDERED: VANCOMYCIN PER PHARMACY MC ONE
[2017-11-22] MEDS ORDERED: ONDANSETRON 2MG/ML, 2ML IVPush ONE
[2017-11-22] MEDS ORDERED: PIPERACILLIN/TAZO/PMX 3.375GM 50 ML IVPB ONE
[2017-11-22] MEDS ORDERED: MORPHINE SULFATE 4 MG/ML, 1ML IVPush PRN
[2017-11-22] MEDS ORDERED: PIPERACILLIN/TAZO/PMX 3.375GM 50 ML ONE (00:26)
[2017-11-22] MEDS ORDERED: MORPHINE SULFATE 4 MG/ML, 1ML ONE (00:26)
[2017-11-22] MEDS ORDERED: VANCOMYCIN 1,600 MG in SODIUM CHLORIDE 0.9% 250 ML IV ONE (00:30)
[2017-11-22] MEDS ORDERED: PHARMACOKINETIC CONSULTATION MC ONE (00:30)
[2017-11-22 00:45] LABS: BASOPHILS # (AUTO) 0.04 x10^3/uL (0-0.1); BASOPHILS % (AUTO) 0 % (0-1); EOSINOPHILS # (AUTO) 0.32 x10^3/uL (0-0.4); EOSINOPHILS % (AUTO) 2 % (1-7); LYMPHOCYTES # (AUTO) 1.18 x10^3/uL (1-3.4); LYMPHOCYTES % (AUTO) 8 % (22-44); MD NO; MEAN CORPUSCULAR HEMOGLOBIN 29.3 pg (27.5-34.5); MEAN CORPUSCULAR HGB CONC 34.3 g/dL (33.2-36.2); MEAN CORPUSCULAR VOLUME 85.3 fL (81-97); MEAN PLATELET VOLUME 9.2 fL (7.4-10.4); MONOCYTES # (AUTO) 0.95 x10^3/uL (0.2-0.8); MONOCYTES % (AUTO) 6 % (2-9); NEUTROPHILS # (AUTO) 12.35 x10^3/uL (1.8-6.8); NEUTROPHILS % (AUTO) 83 % (42-75); PLATELET COUNT 270 x10^3/uL (130-400); RED BLOOD COUNT 4.36 x10^6/uL (4.38-5.82); RED CELL DISTRIBUTION WIDTH 13.7 % (9.4-14.8)
[2017-11-22 00:49] LABS: ALBUMIN 3.3 g/dL (3.4-5.0); ANION GAP 6 mmol/L (5-15); CALCIUM 8.5 mg/dL (8.5-10.1); CHLORIDE 106 mmol/L (98-107); CREATININE 1.02 mg/dL (0.7-1.3)
[2017-11-22] MEDS ORDERED: OMNIPAQUE 350 MG/ML, 100ML BOTTLE ONE (01:45)
[2017-11-22] MEDS ORDERED: LIDOCAINE 2%, 10ML INFIL ONE (03:00)
[2017-11-22] MEDS ORDERED: LIDOCAINE-MPF 2%, 2ML ONE ×2 (03:36)
[2017-11-22] MEDS ORDERED: BISACODYL 10 MG SUPP PR PRN (04:00)
[2017-11-22] MEDS ORDERED: POLYETHYLENE GLYCOL 17 GM PACKET PO PRN (04:00)
[2017-11-22] MEDS ORDERED: DOCUSATE 100 MG CAPSULE PO PRN (04:00)
[2017-11-22] MEDS ORDERED: PROMETHAZINE 25 MG/ML, 1ML IM PRN (04:00)
[2017-11-22] MEDS ORDERED: ONDANSETRON ODT 4 MG PO PRN (04:00)
[2017-11-22] MEDS ORDERED: LABETALOL 5MG/ML, 20ML IVPush PRN (04:00)
[2017-11-22] MEDS ORDERED: ONDANSETRON 2MG/ML, 2ML IVPush PRN (04:00)
[2017-11-22] MEDS ORDERED: hydrALAzine 20 MG/ML, 1ML IVPush PRN (04:00)
[2017-11-22] MEDS ORDERED: OXYcodone IR 5MG TABLET PO PRN (04:00)
[2017-11-22] MEDS ORDERED: VANCOMYCIN PER PHARMACY MC PRN (04:00)
[2017-11-22] MEDS ORDERED: ACETAMINOPHEN 325 MG TABLET PO PRN (04:00)
[2017-11-22 04:23] LABS: C-REACTIVE PROTEIN, QUANT 4.3 mg/dL (0.02-0.49); FREE T4 (FREE THYROXINE) 0.92 ng/dL (0.76-1.46); THYROID STIMULATING HORMONE 2.97 mIU/L (0.358-3.740)
[2017-11-22 04:30] LABS: HEMOGLOBIN A1C 5.6 % (4.2-6.3)
[2017-11-22 04:41] VITALS: BP 121/61
[2017-11-22] MEDS: PRAMIPEXOLE 0.125MG TABLET PO SCH ×4 (05:00→22:47)
[2017-11-22] MEDS: HEPARIN 5,000 UNITS/ML, 1ML SQ SCH ×3 (05:00→21:00)
[2017-11-22] MEDS ORDERED: PHARMACOKINETIC MONITORING MC PRN (05:00)
[2017-11-22] MEDS: NICOTINE 7 MG/24 HR PATCH.TD24 TD SCH (05:01)
[2017-11-22] MEDS: AMPICILLIN/SULBACTAM 3 GM in SODIUM CHLORIDE 0.9% 100 ML IV SCH ×3 (05:01→18:04)
[2017-11-22] MEDS: SODIUM CHLORIDE 0.9% 1,000 ML IV SCH ×3 (05:01→22:47)
[2017-11-22 05:16] LABS: HCT (SEDRATE) 37.2 % (39.2-51.8)
[2017-11-22] MEDS: MAGNESIUM OXIDE 400 MG TABLET PO SCH (08:27)
[2017-11-22 08:28] VITALS: BP 131/69
[2017-11-22] MEDS: VANCOMYCIN 1,600 MG in SODIUM CHLORIDE 0.9% 250 ML IV SCH (13:37)
[2017-11-22 14:48] VITALS: BP 145/78
[2017-11-22 21:00] VITALS: BP 160/92
[2017-11-23] MEDS: AMPICILLIN/SULBACTAM 3 GM in SODIUM CHLORIDE 0.9% 100 ML IV SCH ×5 (00:17→22:28)
[2017-11-23] MEDS: morphine SULFATE 10 MG/ML, 1ML IVPush PRN ×3 (00:17→22:40)
[2017-11-23] MEDS: VANCOMYCIN 1,600 MG in SODIUM CHLORIDE 0.9% 250 ML IV SCH ×3 (01:10→12:52)
[2017-11-23 02:22] VITALS: BP 145/76
[2017-11-23] MEDS: HEPARIN 5,000 UNITS/ML, 1ML SQ SCH ×3 (05:00→21:00)
[2017-11-23] MEDS: SODIUM CHLORIDE 0.9% 1,000 ML IV SCH (05:00)
[2017-11-23] MEDS: NICOTINE 7 MG/24 HR PATCH.TD24 TD SCH (05:00)
[2017-11-23 05:18] LABS: ALANINE AMINOTRANSFERASE 15 U/L (12-78); ALBUMIN 2.4 g/dL (3.4-5.0); ANION GAP 5 mmol/L (5-15); BASOPHILS # (AUTO) 0.02 x10^3/uL (0-0.1); BASOPHILS % (AUTO) 0 % (0-1); CHLORIDE 108 mmol/L (98-107); CHOLESTEROL, TOTAL 124 mg/dL (140-239); CREATININE 0.77 mg/dL (0.7-1.3); EOSINOPHILS # (AUTO) 0.25 x10^3/uL (0-0.4); EOSINOPHILS % (AUTO) 3 % (1-7); LYMPHOCYTES # (AUTO) 1.22 x10^3/uL (1-3.4); LYMPHOCYTES % (AUTO) 14 % (22-44); MD NO; MEAN CORPUSCULAR HEMOGLOBIN 29.2 pg (27.5-34.5); MEAN CORPUSCULAR VOLUME 85.8 fL (81-97); MEAN PLATELET VOLUME 8.7 fL (7.4-10.4); MONOCYTES # (AUTO) 0.56 x10^3/uL (0.2-0.8); MONOCYTES % (AUTO) 7 % (2-9); NEUTROPHILS # (AUTO) 6.51 x10^3/uL (1.8-6.8); NEUTROPHILS % (AUTO) 76 % (42-75); PLATELET COUNT 245 x10^3/uL (130-400); RED BLOOD COUNT 4.15 x10^6/uL (4.38-5.82); RED CELL DISTRIBUTION WIDTH 14.3 % (9.4-14.8); TRIGLYCERIDES 116 mg/dL (50-200); VLDL CHOLESTEROL 23 mg/dL (0-25)
[2017-11-23 05:20] LABS: ALKALINE PHOSPHATASE 84 U/L (45-117); BILIRUBIN,TOTAL 0.4 mg/dL (0.2-1.0); CHOL/HDL RATIO 3.6; HDL CHOL % 27 % (26-37); HDL CHOLESTEROL (DIRECT) 34 mg/dL (40-60); LDL CHOLESTEROL,CALCULATED 67 mg/dL (54-169); TOTAL PROTEIN 6.1 g/dL (6.4-8.2)
[2017-11-23] MEDS: PRAMIPEXOLE 0.125MG TABLET PO SCH ×3 (09:31→22:29)
[2017-11-23] MEDS: MAGNESIUM OXIDE 400 MG TABLET PO SCH (09:31)
[2017-11-23 09:51] VITALS: BP 146/82
[2017-11-23 15:30] VITALS: BP 158/91
[2017-11-23 19:15] VITALS: BP 153/67
[2017-11-24 00:15] VITALS: BP 135/57
[2017-11-24] MEDS: VANCOMYCIN 1,600 MG in SODIUM CHLORIDE 0.9% 250 ML IV SCH (00:58)
[2017-11-24] MEDS: AMPICILLIN/SULBACTAM 3 GM in SODIUM CHLORIDE 0.9% 100 ML IV SCH ×4 (04:02→22:29)
[2017-11-24] MEDS: HEPARIN 5,000 UNITS/ML, 1ML SQ SCH ×3 (04:40→21:00)
[2017-11-24 07:05] VITALS: BP 156/82
[2017-11-24] MEDS: MAGNESIUM OXIDE 400 MG TABLET PO SCH (09:00)
[2017-11-24] MEDS: PRAMIPEXOLE 0.125MG TABLET PO SCH ×3 (10:24→21:53)
[2017-11-24] MEDS: NICOTINE 7 MG/24 HR PATCH.TD24 TD SCH (10:24)
[2017-11-24 12:35] VITALS: BP 157/80
[2017-11-24] MEDS: ACETAMINOPHEN 325 MG TABLET PO SCH ×2 (13:12→21:51)
[2017-11-24] MEDS: ISOSORBIDE DINITRATE 10 MG TABLET PO SCH ×2 (16:06→21:53)
[2017-11-24 19:05] VITALS: BP 134/80
[2017-11-24] MEDS: OXYcodone IR 5MG TABLET PO PRN ×2 (21:51→22:28)
[2017-11-24] MEDS: MORPHINE SULFATE 4 MG/ML, 1ML IVPush PRN (22:43)
[2017-11-25 01:10] VITALS: BP 129/70
[2017-11-25] MEDS: ACETAMINOPHEN 325 MG TABLET PO SCH ×3 (02:00→13:42)
[2017-11-25] MEDS: AMPICILLIN/SULBACTAM 3 GM in SODIUM CHLORIDE 0.9% 100 ML IV SCH (04:22)
[2017-11-25] MEDS: HEPARIN 5,000 UNITS/ML, 1ML SQ SCH ×2 (04:53→12:07)
[2017-11-25 08:08] VITALS: BP 138/64
[2017-11-25] MEDS: MAGNESIUM OXIDE 400 MG TABLET PO SCH (08:12)
[2017-11-25] MEDS: PRAMIPEXOLE 0.125MG TABLET PO SCH (08:12)
[2017-11-25] MEDS: ISOSORBIDE DINITRATE 10 MG TABLET PO SCH (08:12)
[2017-11-25] MEDS: OXYcodone IR 5MG TABLET PO PRN ×2 (08:13→14:33)
[2017-11-25] MEDS: NICOTINE 7 MG/24 HR PATCH.TD24 TD SCH (08:13)
[2017-11-25] MEDS ORDERED: AMOXICILLIN/CLAV 875-125MG TABLET PO SCH (08:30)
[2017-11-25] MEDS ORDERED: ISOS10TA2 PO (11:37)
[2017-11-25] MEDS ORDERED: HYDR-3341 PO (11:37)
[2017-11-25] MEDS ORDERED: AMOX1TAB12 PO (11:37)
[2017-11-25] MEDS ORDERED: ACET325T14 PO (11:37)
[2017-11-25 12:01] VITALS: BP 149/73
[2017-11-25] MEDS: MORPHINE SULFATE 4 MG/ML, 1ML IVPush PRN (13:42)
[2017-11-25] MEDS ORDERED: PRAM0.125 PO (14:23)
== END 2017-11-25 15:55 | disposition home or self-care (01) | DRG 558 ==
LOC: ED 23:45 → EDIP 11-22 04:03 → 4NOR 11-22 04:36 → DCLOUNGE 11-25 15:42
PROVIDERS: ADMIT Internal Medicine; ATTEND Internal Medicine
PROC: 0X9F0ZZ Drainage of Left Lower Arm, Open Approach (ICD-10-PCS; principal; 2017-11-22)
DX: M60.032 Infective myositis, left forearm (principal); L02.414 Cutaneous abscess of left upper limb; E44.0 Moderate protein-calorie malnutrition; L03.114 Cellulitis of left upper limb; I10 Essential (primary) hypertension; G25.81 Restless legs syndrome; E83.42 Hypomagnesemia; F17.210 Nicotine dependence, cigarettes, uncomplicated; F15.10 Other stimulant abuse, uncomplicated; Z71.51 Drug abuse counseling and surveillance of drug abuser; Z68.21 Body mass index [BMI] 21.0-21.9, adult; Z71.6 Tobacco abuse counseling; F11.10 Opioid abuse, uncomplicated
CPT/HCPCS: 10060; 36415; 80048; 80053; 80061; 80074; 80202; 82040; 83036; 83605; 83735; 84100; 84439; 84443; 85025; 85651; 86140; 87040; 87070; 87147; 87205; 87806; 96365; 96375; J0295; J2543; J3370; Q9967; G0475; J2270; J7030; J7050

== ENCOUNTER 2017-12-23 07:52 | Inpatient (IN) | payer MEDICAID ==
[~2017-12-23] VITALS: Ht 185.4 cm; Wt 74.8 kg
[~2017-12-23 07:52] MED LIST changes: +ACET325T14 PO; +AMOX1TAB12 PO; +HYDR-3341 PO; +ISOS10TA2 PO
[2017-12-23 08:41] LABS: MEAN CORPUSCULAR HEMOGLOBIN 29.5 pg (27.5-34.5); MEAN CORPUSCULAR HGB CONC 33.9 g/dL (33.2-36.2); MEAN CORPUSCULAR VOLUME 87.1 fL (81-97); MEAN PLATELET VOLUME 9.3 fL (7.4-10.4); PLATELET COUNT 242 x10^3/uL (130-400); RED BLOOD COUNT 4.39 x10^6/uL (4.38-5.82); RED CELL DISTRIBUTION WIDTH 14.4 % (9.4-14.8)
[2017-12-23 08:51] LABS: ALBUMIN 2.4 g/dL (3.4-5.0); ANION GAP 11 mmol/L (5-15); CALCIUM 8.5 mg/dL (8.5-10.1); CHLORIDE 102 mmol/L (98-107); CREATININE 0.95 mg/dL (0.7-1.3)
[2017-12-23] MEDS ORDERED: AZITHROMYCIN 500 MG in SODIUM CHLORIDE 0.9% 250 ML IV ONE (09:00)
[2017-12-23] MEDS ORDERED: CEFTRIAXONE PMX 1GM/50ML 50 ML IV ONE (09:00)
[2017-12-23 09:11] LABS: BASOPHILS # (AUTO) 0.01 x10^3/uL (0-0.1); BASOPHILS % (AUTO) 0 % (0-1); EOSINOPHILS # (AUTO) 0.03 x10^3/uL (0-0.4); EOSINOPHILS % (AUTO) 0 % (1-7); LYMPHOCYTES # (AUTO) 0.59 x10^3/uL (1-3.4); LYMPHOCYTES % (AUTO) 3 % (22-44); MD SCAN; MONOCYTES % (AUTO) 2 % (2-9); NEUTROPHILS # (AUTO) 16.21 x10^3/uL (1.8-6.8); NEUTROPHILS % (AUTO) 94 % (42-75)
[2017-12-23] MEDS ORDERED: CEFTRIAXONE PMX 1GM/50ML 50 ML ONE (09:27)
[2017-12-23] MEDS ORDERED: SODIUM CHLORIDE 0.9% 1,000ML IVBOLUS ONE (09:30)
[2017-12-23] MEDS ORDERED: ONDANSETRON ODT 4 MG PO PRN (11:30)
[2017-12-23] MEDS ORDERED: PHARMACOKINETIC MONITORING MC PRN (11:30)
[2017-12-23] MEDS ORDERED: OXYcodone IR 5MG TABLET PO PRN (11:30)
[2017-12-23] MEDS ORDERED: PHARMACOKINETIC CONSULTATION MC ONE (11:30)
[2017-12-23] MEDS ORDERED: VANCOMYCIN PER PHARMACY MC PRN (11:30)
[2017-12-23] MEDS ORDERED: SODIUM CHLORIDE 0.9% 1,000 ML IV ONE (11:30)
[2017-12-23] MEDS ORDERED: VANCOMYCIN 1,500 MG in SODIUM CHLORIDE 0.9% 250 ML IVPB SCH (11:30)
[2017-12-23 11:40] VITALS: BP 138/77
[2017-12-23] MEDS: HEPARIN 5,000 UNITS/ML, 1ML SQ SCH ×2 (12:14→21:54)
[2017-12-23] MEDS: AMPICILLIN/SULBACTAM 3 GM in SODIUM CHLORIDE 0.9% 100 ML IV SCH ×3 (12:14→21:54)
[2017-12-23] MEDS: ACETAMINOPHEN 325 MG TABLET PO PRN (12:15)
[2017-12-23 13:04] LABS: ALBUMIN 2.4 g/dL (3.4-5.0)
[2017-12-23 13:08] LABS: BILIRUBIN, DIRECT 0.2 mg/dL (0.1-0.2); BILIRUBIN,INDIRECT 0.5 mg/dL (0.0-2.0); BILIRUBIN,TOTAL 0.7 mg/dL (0.2-1.0); TOTAL PROTEIN 7.4 g/dL (6.4-8.2)
[2017-12-23 14:13] LABS: MICROSCOPIC INDICATED
[2017-12-23 14:25] LABS: AMPHETAMINE SCREEN, URINE Positive (Negative); BARBITURATE SCREEN, URINE Negative (Negative); BENZODIAZEPINE SCREEN, URINE Negative (Negative); CANNABINOID SCREEN, URINE Negative (Negative); COCAINE SCREEN, URINE Negative (Negative); METHADONE SCREEN, URINE Negative (Negative); OPIATE SCREEN, URINE Negative (Negative)
[2017-12-23 14:28] LABS: CULTURE INDICATED? NO
[2017-12-23] MEDS ORDERED: ALBUTEROL/IPRATROPIUM 2.5MG/0.5MG, 3 ML NPPB SCH (15:00)
[2017-12-23 15:14] VITALS: BP 119/72
[2017-12-23 15:47] VITALS: BP 143/68
[2017-12-23] MEDS ORDERED: ACETAMINOPHEN 325 MG TABLET PO PRN (16:30)
[2017-12-23] MEDS ORDERED: PHARMACY MAY ADJ FOR RENAL FX MC PRN (17:00)
[2017-12-23] MEDS ORDERED: hydrALAzine 20 MG/ML, 1ML IV PRN (17:00)
[2017-12-23 20:00] VITALS: BP 149/79
[2017-12-23] MEDS: PRAMIPEXOLE 0.125MG TABLET PO SCH (21:53)
[2017-12-23] MEDS: ISOSORBIDE DINITRATE 10 MG TABLET PO SCH (21:53)
[2017-12-24] VITALS (7 sets, daily range): BP systolic 123–133; BP diastolic 64–68
[2017-12-24] MEDS: VANCOMYCIN 1,600 MG in SODIUM CHLORIDE 0.9% 250 ML IV SCH ×2 (01:10→14:27)
[2017-12-24] MEDS: AMPICILLIN/SULBACTAM 3 GM in SODIUM CHLORIDE 0.9% 100 ML IV SCH ×4 (04:15→22:12)
[2017-12-24] MEDS: HEPARIN 5,000 UNITS/ML, 1ML SQ SCH ×3 (04:22→20:32)
[2017-12-24 05:36] LABS: CHLORIDE 105 mmol/L (98-107)
[2017-12-24 05:42] LABS: ANION GAP 8 mmol/L (5-15); CALCIUM 8.1 mg/dL (8.5-10.1); CREATININE 0.72 mg/dL (0.7-1.3)
[2017-12-24 05:51] LABS: MEAN CORPUSCULAR HEMOGLOBIN 29.5 pg (27.5-34.5); MEAN CORPUSCULAR HGB CONC 33.5 g/dL (33.2-36.2); MEAN PLATELET VOLUME 9.7 fL (7.4-10.4); PLATELET COUNT 230 x10^3/uL (130-400); RED BLOOD COUNT 3.75 x10^6/uL (4.38-5.82); RED CELL DISTRIBUTION WIDTH 14.4 % (9.4-14.8)
[2017-12-24 06:36] LABS: BASOPHILS # (AUTO) 0.06 x10^3/uL (0-0.1); BASOPHILS % (AUTO) 1 % (0-1); EOSINOPHILS # (AUTO) 0.09 x10^3/uL (0-0.4); EOSINOPHILS % (AUTO) 1 % (1-7); LYMPHOCYTES # (AUTO) 0.88 x10^3/uL (1-3.4); LYMPHOCYTES % (AUTO) 8 % (22-44); MONOCYTES # (AUTO) 1.01 x10^3/uL (0.2-0.8); MONOCYTES % (AUTO) 9 % (2-9); NEUTROPHILS # (AUTO) 8.87 x10^3/uL (1.8-6.8); NEUTROPHILS % (AUTO) 81 % (42-75)
[2017-12-24 06:43] LABS: MD SCAN
[2017-12-24] MEDS: ISOSORBIDE DINITRATE 10 MG TABLET PO SCH ×3 (10:18→20:32)
[2017-12-24] MEDS: PRAMIPEXOLE 0.125MG TABLET PO SCH ×3 (10:18→20:32)
[2017-12-24] MEDS: ACETAMINOPHEN 325 MG TABLET PO PRN ×2 (10:42→16:55)
[2017-12-24] MEDS: LORazepam 1MG TABLET PO PRN ×2 (18:28→22:17)
[2017-12-24] MEDS ORDERED: LORazepam 2 MG/ML, 1ML IV PRN ×5 (18:30)
[2017-12-24] MEDS ORDERED: LORazepam 0.5MG TABLET PO PRN (18:30)
[2017-12-24] MEDS ORDERED: LORazepam 1MG TABLET PO PRN ×3 (18:30)
[2017-12-25] MEDS: AMPICILLIN/SULBACTAM 3 GM in SODIUM CHLORIDE 0.9% 100 ML IV SCH (04:06)
[2017-12-25] MEDS: HEPARIN 5,000 UNITS/ML, 1ML SQ SCH (04:07)
[2017-12-25 05:15] LABS: BASOPHILS # (AUTO) 0.03 x10^3/uL (0-0.1); BASOPHILS % (AUTO) 0 % (0-1); EOSINOPHILS # (AUTO) 0.14 x10^3/uL (0-0.4); EOSINOPHILS % (AUTO) 2 % (1-7); LYMPHOCYTES # (AUTO) 0.96 x10^3/uL (1-3.4); LYMPHOCYTES % (AUTO) 12 % (22-44); MD NO; MEAN CORPUSCULAR HEMOGLOBIN 28.4 pg (27.5-34.5); MEAN CORPUSCULAR HGB CONC 32.5 g/dL (33.2-36.2); MEAN CORPUSCULAR VOLUME 87.4 fL (81-97); MEAN PLATELET VOLUME 9.1 fL (7.4-10.4); MONOCYTES # (AUTO) 0.65 x10^3/uL (0.2-0.8); MONOCYTES % (AUTO) 8 % (2-9); NEUTROPHILS # (AUTO) 6.47 x10^3/uL (1.8-6.8); NEUTROPHILS % (AUTO) 78 % (42-75); PLATELET COUNT 263 x10^3/uL (130-400); RED BLOOD COUNT 3.96 x10^6/uL (4.38-5.82); RED CELL DISTRIBUTION WIDTH 14.1 % (9.4-14.8)
[2017-12-25 08:01] VITALS: BP 157/83
[2017-12-25] MEDS: PRAMIPEXOLE 0.125MG TABLET PO SCH (08:13)
[2017-12-25] MEDS: ISOSORBIDE DINITRATE 10 MG TABLET PO SCH (08:13)
[2017-12-25] MEDS ORDERED: AMOXICILLIN/CLAV 875-125MG TABLET PO SCH (09:30)
[2017-12-25] MEDS ORDERED: HYDR-3341 PO (11:17)
[2017-12-25] MEDS ORDERED: PRAM0.125 PO (11:17)
[2017-12-25] MEDS ORDERED: ISOS10TA2 PO (11:17)
[2017-12-25] MEDS ORDERED: ACET325T14 PO (11:17)
[2017-12-25] MEDS ORDERED: AMOX1TAB12 PO (11:17)
[2017-12-25] MEDS ORDERED: ONDA4TAB13 PO (11:17)
== END 2017-12-25 13:40 | disposition left against medical advice (07) | DRG 871 ==
LOC: ED 08:25 → EDIP 09:32 → 4WST 11:02
PROVIDERS: ADMIT Internal Medicine; ATTEND Internal Medicine
DX: A41.9 Sepsis, unspecified organism (principal); J13 Pneumonia due to Streptococcus pneumoniae; E44.0 Moderate protein-calorie malnutrition; F15.10 Other stimulant abuse, uncomplicated; F17.210 Nicotine dependence, cigarettes, uncomplicated; G25.81 Restless legs syndrome; I10 Essential (primary) hypertension; Z91.19 Patient's noncompliance with other medical treatment and regimen; Z68.21 Body mass index [BMI] 21.0-21.9, adult
CPT/HCPCS: 36415; 71046; 80048; 80076; 80307; 81001; 82040; 83605; 83690; 83735; 84100; 84145; 85025; 87040; 87070; 87077; 87081; 87184; 87205; 93005; 96365; 96375; 99285; G0378; J0295; J0456; J0696; J1644; J3370; J7030; J7050

== ENCOUNTER 2020-04-13 10:35 | Emergency (ER) | payer MEDICAID ==
[~2020-04-13] VITALS: Ht 185.4 cm; Wt 90.4 kg
[~2020-04-13 10:35] MED LIST changes: -NICO-487 TD; +NICO-587 TD; +ONDA4TAB13 PO
[2020-04-13 10:43] VITALS: BP 125/75
== END 2020-04-13 11:35 | disposition home or self-care (01) ==
LOC: ED 11:25
DX: G20 Parkinson's disease (principal); Z76.0 Encounter for issue of repeat prescription
CPT/HCPCS: 99281

== ENCOUNTER 2020-08-04 16:48 | Emergency (ER) | payer MEDICAID ==
[~2020-08-04] VITALS: Ht 185.4 cm; Wt 83.9 kg
[2020-08-04 16:59] VITALS: BP 144/79
--- NOTE | 2020-08-04 17:23 | NUR ---
[employer]: PT TO ROOM FROM [facility]
--- NOTE | 2020-08-04 17:44 | NUR ---
Patient/Caregiver given discharge instructions and they have confirmed that they understand the instructions. Patient ambulatory with steady gait.
== END 2020-08-04 18:01 | disposition home or self-care (01) ==
LOC: ED 17:15
DX: G25.81 Restless legs syndrome (principal); Z76.0 Encounter for issue of repeat prescription
CPT/HCPCS: 99281

== ENCOUNTER 2020-10-03 17:54 | Emergency (ER) | payer MEDICAID ==
[~2020-10-03] VITALS: Ht 188 cm; Wt 79.0 kg
--- NOTE | 2020-10-03 22:50 | NUR ---
REPORT OF PT FROM ABIMAEL RIVERS AND ASSUMING CARE OF PT AT THIS TIME. PT ASLEEP IN [facility] WITH NADN AND EQUAL BILATERAL RISE AND FALL OF CHEST OBSERVED. PT VSS. PT ATTACHED TO CARDIAC AND VS MONITORS WITH CALL LIGHT WITHIN REACH.
--- NOTE | 2020-10-04 00:29 | NUR ---
PT WEANED FROM 2L NC TO RA. PT SATTING 87% ON ROOM AIR AND BRADYPNIC. DR VILLATORO NOTIFIED; AWAITING NEW ORDERS AT THIS TIME. PT PLACED BACK ON 2L O2 NC.
[2020-10-04] MEDS ORDERED: NALOXONE 1 MG/ML, 2ML ONE (00:34)
--- NOTE | 2020-10-04 00:41 | NUR ---
PT MEDICATED PER MAR AT THIS TIME.
[2020-10-04] MEDS ORDERED: NALOXONE 1 MG/ML, 2ML IVPush ONE (01:00)
--- NOTE | 2020-10-04 01:08 | NUR ---
report of pt to gloria menjivar. all questions anwered.
--- NOTE | 2020-10-04 01:41 | NUR ---
Pt awake, RR equal and unlabored drinking po fluids.
[2020-10-04] MEDS ORDERED: ONDANSETRON 2MG/ML, 2ML ONE (02:15)
[2020-10-04] MEDS ORDERED: ONDANSETRON 2MG/ML, 2ML IVPush ONE (02:30)
--- NOTE | 2020-10-04 02:35 | NUR ---
FIRST CONTACT W/ PT: PT STANDING AT BEDSIDE USING URINAL, RETURNED TO [facility] W/O INCIDENT. MEDICATED PER EMAR AND PROVIDED W/ WATER PER ERP AND PT REQUEST. MATA LEWIS.
--- NOTE | 2020-10-04 03:30 | NUR ---
PT AWAKE AND ALERT, VSS, NADN.
[2020-10-04 03:36] VITALS: BP 126/76
--- NOTE | 2020-10-04 04:15 | NUR ---
PT REPORTS HE HAS A SAFE PLACE TO STAY AFTER DC AND MEANS OF TRANSPORTATION. DECLINES OFFER FOR [facility] AT THIS TIME.
--- NOTE | 2020-10-04 04:17 | NUR ---
UPON RECEIVING DC PPWK, PT HAS C/O DIZZINESS. PER ERP PT OK FOR DC. PT PROVIDED W/ WATER AND SNACKS, PLAN TO TRY AND AMBULATE AGAIN IN 30 MINUTES. PT AWAKE AND ALERT. RESP EVEN AND UNLABORED, MATA.
== END 2020-10-04 04:17 | disposition home or self-care (01) ==
LOC: EDBD 17:54 → ED 22:10 → MERGE 22:10 → EDIP 10-04 00:56 → UNDOADMOB 10-04 00:56 → ED 10-04 04:17
DX: T40.1X1A Poisoning by heroin, accidental (unintentional), initial encounter (principal); R41.82 Altered mental status, unspecified; R94.31 Abnormal electrocardiogram [ECG] [EKG]; F11.10 Opioid abuse, uncomplicated; Z72.9 Problem related to lifestyle, unspecified; G92 Toxic encephalopathy
CPT/HCPCS: 93005; 96374; 96375; 99285; J2310; J2405

== ENCOUNTER 2020-10-07 10:00 | Emergency (ER) | payer MEDICAID ==
[~2020-10-07] VITALS: Ht 185.4 cm; Wt 81.2 kg
[2020-10-07 10:17] VITALS: BP 151/86
== END 2020-10-07 10:57 | disposition home or self-care (01) ==
LOC: ED 10:45
DX: H60.92 Unspecified otitis externa, left ear (principal)
CPT/HCPCS: 99283